=== PATIENT | female | born 1965 | race Caucasian/White ===

== ENCOUNTER → 2023-07-10 12:21 | Outpatient (REF) | payer OTHER, SELFPAY ==
[2023-07-10 13:27] LABS: % Basophils 0.4 % (0-2); % Eosinophils 1.1 % (0-6); % Immature Granulocytes 0.2 % (0-0.5); % Lymphocytes 18.2 % (20.5-51.1); % Monocytes 6.2 % (1.7-9.3); % Neutrophils 73.9 % (42.2-75.2); Absolute Eosinophils 0.1 10^3/uL (0-0.7); Absolute Lymphocytes 1.7 10^3/uL (1.2-3.4); Absolute Monocytes 0.6 10^3/uL (0.1-0.6); Hematocrit 42.3 % (37.0-47.0); Hemoglobin 13.7 g/dL (12.0-16.0); Mean Corp Hgb Conc. 32.4 g/dL (33.0-37.0); Mean Corpuscular Hgb 27.5 pg (27.0-31.0); Mean Corpuscular Volume 84.9 fL (81.0-99.0); Mean Platelet Volume 9.1 fL (7.4-10.4); Nucleated Red Blood Cells % 0 %; Platelet Count 268 10^3/uL (130-400); Red Blood Cell Count 4.98 10^6/uL (4.20-5.40); Red Cell Dist. Width 13.6 % (11.5-14.5); White Blood Cell Count 9.5 10^3/uL (4.8-10.8)
[2023-07-10 13:35] LABS: ALT (SGPT) 22 U/L (0-35); AST (SGOT) 24 U/L (14-36); Albumin 4.2 g/dl (3.5-5.0); Alkaline Phosphatase 75 U/L (38-126); Amylase 75 U/L (30-110); Blood Urea Nitrogen 15 mg/dl (7-17); Calcium 9.6 mg/dl (8.4-10.2); Carbon Dioxide 27 mmol/L (22-30); Chloride 103 mmol/L (98-107); Glucose 98 mg/dl (70-99); Lipase 86 U/L (23-300); Potassium 4.4 mmol/L (3.5-5.1); Sodium 138 mmol/L (135-145); Total Bilirubin 1.2 mg/dl (0.2-1.3); eGFR > 60.00
== END ==
LOC: HWRAD 12:21
PROVIDERS: ATTENDING PHYSICIAN Family Medicine
DX: R10.32 Left lower quadrant pain (principal)
CPT/HCPCS: 36415; 74177; 80053; 82150; 83690; 85025; Q9967

== ENCOUNTER 2023-07-10 20:04 | Day surgery (SDC) | payer OTHER, SELFPAY ==
[2023-07-10 16:12] VITALS: BP 134/89
--- NOTE | 2023-07-10 17:12 | ED.GENMED ---
History of Present Illness
General
Chief Complaint: Abdominal Pain
Source: patient and spouse
Time Seen by Provider: 07/10/23 16:49
Travel History
Have you had any contact with someone who has COVID-19?: No
Do you have any symptoms of coronavirus? Fever > 100 degrees, chills, cough, shortness of breath, sore throat, loss of taste or smell, muscle aches, or headache?: No
History of Present Illness
History of Present Illness:
This patient is a 58-year-old female has been complaining of 'heartburn' for at least the past week or so, who noted last night that she had generalized abdominal discomfort described as feeling gassy and bloated. This continued throughout the
night, without focality, and she had difficulty sleeping as result. She saw her doctor today and was referred for an outpatient CAT scan and labs, result consistent with acute appendicitis without peripheral abscess. Patient states pain continues,
is mostly across her lower abdomen including left lower quadrant. She had chills last night but denies fever sweats. She denies vomiting but does note waves of nausea. She is hungry but states that when she eats she thinks the pain might get
worse. She denies back pain, chest pain, shortness of breath, constipation, or other complaints.
Past History
Past History
ED Past Medical History: Psychiatric
ED Past Surgical History: and Tonsilectomy
Social History
Tobacco: Non-smoker
Alcohol: Occasional
Drug: None
Personal:
Living: with family
Phy Exam
Physical Exam
Physical Exam:
GENERAL: Alert , in no apparent distress
EYE: pupils equal and reactive
NECK: Supple, no significant adenopathy.
ENT: o/p clr, mm sl dry
CARDIAC: Regular rate and rhythm .
LUNGS: Clear breath sounds bilaterally, no acute respiratory distress, no wheezes/rales/rhonchi
ABDOMEN: Soft, diffuse lower tenderness greatest at RLW, no r/g, no cvat
NEUROLOGICAL: Alert and oriented, no focal neuro deficits
SKIN: Warm and dry, skin intact.
MUSCULOSKELETAL: No edema, well perfused.
PSYCH: Normal and appropriate interaction.
Course
Orders/Labs/Results
Orders:
Orders
07/10/23 16:49
IV Insert/Care/Rem.- Treatment NOW
07/10/23 17:01
0.9% Sodium Chloride 500 ml [Nss] 500 ml IV BOLUS
07/10/23 17:16
Ampicillin/Sulbactam 3 G [Unasyn] 3 gm 0.9% Sodium Chloride 100 ml [Nss] 100 ml IV NOW
07/10/23 16:49
07/10/23 16:49
Vital Signs
Initial and Last Documented VS:
Initial Vital Signs
Temp Pulse Resp BP Pulse Ox
98.4 F 77 16 134/89 98
07/10/23 16:12 07/10/23 16:12 07/10/23 16:12 07/10/23 16:12 07/10/23 16:12
Last Documented Vital Signs
Temp Pulse Resp BP Pulse Ox
98.4 F 77 16 134/89 98
07/10/23 16:12 07/10/23 16:12 07/10/23 16:12 07/10/23 16:12 07/10/23 16:12
*Critical Care Note
Total Time (30-74mins, 75-104mins- exclusive of procedures): Not Applicable
Update Note
Update Note:
Patient presents to the Emergency Department with __abdominal pain
Number and Complexity of Problems Addressed at the Encounter
� Chronic conditions affecting care:
� Acute Exacerbation and/or Progression of Chronic Illness:
� Differential Diagnosis includes: But not limited to appendicitis, mesenteric adenitis, perforation, etc.
Amount and/or Complexity of Data to be Reviewed and Analyzed
� I performed an independent evaluation of and my interpretation is:
EKG:
CT: Report read from outpatient studyAcute appendicitis. Very small volume of associated free fluid in the pelvis. No signs of rupture or abscess formation.
Xrays:
Laboratory Studies: Outpatient labs reviewed generally unremarkable
Other:
� Review of other/old records reveals:
� Clinical information was obtained by an independent historian: who is at bedside
� Prescriptions/Medications Considered but not given:
� Further testing considered but not performed:
Risk of Complications and/or Morbidity or Mortality of Patient Management
� Social determinants of health affecting care:
� Discussion with other providers (PCP, Hospitalists, Consultants, etc): Case discussed with surgery Dr. Jose Nguyen via [place] text, aware of diagnosis, PMH, allergies, etc. I informed him I will hang IV fluids and start
antibiotics in anticipation of his admission of patient and likely surgery. Patient remained stable and overall well-appearing
� Escalation of care including admission/observation vs risk of discharge considered:
ED Attending Note
-
Portions of this chart may have been created with voice recognition software.� Occasional wrong word or��sound alike� substitutions may have occurred due to the inherent limitations of voice recognition software.
Discharge Plan
Departure
Patient Disposition: Admit
Date of Disposition: 07/10/23
Time of Disposition: 17:15
Admit to: Med/Surg
Admit to doctor: delon
Presentation/result/management discussed w/ accepting /: delon
Condition: Good
Discharge Problem:
Acute appendicitis
Prescriptions:
No Action
vit-iron fum-folic ac [ Tablet] 1 TAB tablet
Referrals:
Scottie Kraus MD [Family Provider] -
Interventions
Interventions:
*ED COVID-19 Vaccine History Last Done: 07/10/23 16:12
Discharge Date and Time
Print Language: BELARUSIAN
[2023-07-10 17:23] VITALS: BMI 25.1
[2023-07-10] MEDS: NSS 500 IV (17:25)
[2023-07-10] MEDS: UNASYN IV ×2 (17:53→23:21)
[2023-07-10 18:54] VITALS: BP 115/69
--- NOTE | 2023-07-10 19:55 | HPS.HSE ---
Family Physician
-
Family Physician: Scottie Kraus
Chief Complaint
-
'Abdomen pain'
History of Present Illness
58 y/o patient presents to ER with the c/o Abdomen pain. States last night she felt gassy and bloated, noted 'crampy' pain spread through out the abdomen. She felt chills and shaky but did not check her temperature. Reports some nausea, Denies any
vomiting, took Tums without relief, states food aggravated symptoms. LBM at noon which was normal and not diarrhea or constipation. voiding without difficulty, Denies chest pain, SOB, Afebrile.
Medical History
Past Medical History
Past Medical History: Reports Psychiatric
Past Surgical History: Reports Orthopedic, Tonsilectomy and Other (C sec x 2 )
Social History
Tobacco: Non-smoker
Alcohol: None
Drug: None
Living: With Family
Family History
Family History: Not pertinent
Allergies / Home Medications
Allergies reflects when Allergies were last updated in [employer].
Home Medications with original date entered in [employer]
Allergy/Medication List:
Allergies
Allergy/AdvReac Type Severity Reaction Status Date / Time
codeine Allergy Anaphylaxis Verified 07/10/23 20:42
Sutures Allergy Hives Verified 07/10/23 20:42
Home Medications
fluoxetine 20 mg capsule 20 mg PO HS 07/10/23
omeprazole 20 mg capsule,delayed release 20 mg PO DAILY PRN gi issues 07/10/23
Review of Systems
-
History Source: Patient
A 12 point ROS was completed and negative except as noted: Yes
Constitutional: Reports No Symptoms
EENT: Reports No Symptoms
Respiratory: Reports No Symptoms
Cardiac: Reports No Symptoms
Abdomen/GI: Reports Abdominal Pain ('crampy' )
: Reports No Symptoms
Musculoskeletal: Reports No Symptoms
Skin: Reports No Symptoms
Neurological: Reports No Symptoms
Endocrine: Reports No Symptoms
Hematologic/Lymphatic: Reports No Symptoms
Psych: Reports No Symptoms
Physical Exam
Vital Signs
Vital Signs
Temp Pulse Resp BP Pulse Ox
98.4 F 58 16 115/69 98
07/10/23 16:12 07/10/23 18:54 07/10/23 18:54 07/10/23 18:54 07/10/23 18:54
Physical Exam
General: Well Developed, Well Nourished and No Apparent Distress
HEENT: NormoCephalic, Moist mucous membranes and Atraumatic
Respiratory: Clear and Non Labored Respirations
Cardiac: S1/S2 and Regular Rhythm
Breast: Deferred by me
GI: Soft, Non Distended, Normal Bowel Sounds and Tender
Rectal: Deferred by Provider
Genito-urinary: Deferred by me
Musculoskeletal: No Clubbing, No Cyanosis and No Edema
Skin: Warm and Dry
Neuro: Awake and AO x 3
Hematologic/Lymphatic: No Lymphadenopathy
Psych: Calm and Intact Judgment/Insight
Laboratory Results
-
07/10/23 16:49
07/10/23 16:49
Data Reviewed
-
CT Scan: Report Reviewed by me
Lab Data: Labs Reviewed by me
Impression/Plan
-
58 y/o patient with the c/o abdomen pain
# Abdomen pain likely due to Acute Appendicitis
-# CT Abd/pelvis: Acute appendicitis. Very small volume of associated free fluid in the pelvis. No signs of rupture or abscess formation.
-Admit under Dr. Nguyen
-Continue IV Unasyn
-refuses pain meds now, call if asks.
-continue IV Zofran
-NPO
-labs in AM
# Anxiety/Depression
-continue Fluoxetine
DVT Prophylaxis: SCD's
Full code
[2023-07-10 20:46] VITALS: BP 136/79; BMI 25.5
--- NOTE | 2023-07-10 21:15 | PTCARENOTE ---
Received patient from ED via stretcher. Patient ambulated from stretcher to bed. AAOx3, VSS. Patient offers no complaints. Oriented patient to room and placed call alexandre within reach.
[2023-07-10] MEDS: NSS 1000 IV (21:20)
[2023-07-10] MEDS: PROZAC 20 MG PO (21:21)
--- NOTE | 2023-07-10 23:21 | HPS.HSE ---
Family Physician
-
Family Physician: Scottie Kraus
Chief Complaint
-
Right lower quadrant abdominal pain
History of Present Illness
This is a 58-year-old female who presents with a 1 day history of periumbilical/right lower quadrant abdominal pain in the setting of a 1 week history of abdominal discomfort. She saw her PCP earlier today who arranged for an outpatient CT scan
which demonstrated acute appendicitis and so she was referred to our ED for further evaluation and management. She does report some chills as well as pain however currently it is tolerable. The patient denies Fever, Chest Pain, Shortness Of
Breath, Nausea, Vomiting, changes in urinary and bowel habits, unintentional weight loss, jaundice, icterus, acolic stools.
Medical History
Past Medical History
Past Medical History: Reports None
Past Surgical History: Reports Other ( x 2)
Social History
Tobacco: Non-smoker
Alcohol: Occasional
Drug: None
Family History
Family History: Not pertinent
Allergies / Home Medications
Allergies reflects when Allergies were last updated in [employer].
Home Medications with original date entered in [employer]
Allergy/Medication List:
Codeine
Review of Systems
-
A 12 point ROS was completed and negative except as noted: Yes
Physical Exam
Vital Signs
Vital Signs
Temp Pulse Resp BP Pulse Ox
99.1 F 65 17 136/79 98
07/10/23 20:46 07/10/23 20:46 07/10/23 20:46 07/10/23 20:46 07/10/23 20:46
Physical Exam
General: Well Developed
HEENT: NormoCephalic
Respiratory: Non Labored Respirations
GI: Soft, Non Distended and Tender (Mildly tender to palpation in the right lower quadrant.)
Laboratory Results
-
07/10/23 16:49
07/10/23 16:49
Data Reviewed
-
CT Scan: Image Personally Visualized and interpreted, Report Reviewed by me and Discussed with Patient
Lab Data: Labs Reviewed by me, Discussed with Physician and Discussed with Patient
Impression/Plan
-
IMPRESSION:
This is a 58-year-old female who presents with a 1 day history of worsening right lower quadrant pain with associated chills. Tender to palpation in the right lower quadrant, but otherwise clinically stable and no leukocytosis on blood work. CT
scan concerning for acute appendicitis without any appendicolith or concern for perforation.
PLAN:
Discussed both operative and nonoperative management of acute appendicitis. Will trial antibiotics for now and plan for OR in the morning.
N.p.o., IV fluids, IV antibiotics.
Risks/Benefits/Alternatives, expected postoperative course and possible complications (bleeding, infection, injury to surrounding structures, acute/chronic pain) discussed at length. Patient wishes to proceed with surgery. All questions answered.
Consent obtained.
I spent roughly 60 minutes in total for the care of this patient today including direct patient care and counseling, reviewing labs, imaging, coordination of care, as well as documentation.
[2023-07-10 23:55] VITALS: BP 106/63
[2023-07-11] VITALS (7 sets, daily range): BP systolic 103–127; BP diastolic 66–76
[2023-07-11] MEDS: UNASYN IV ×2 (05:32→11:26)
[2023-07-11 07:24] LABS: Hematocrit 39.3 % (37.0-47.0); Hemoglobin 12.6 g/dL (12.0-16.0); Mean Corp Hgb Conc. 32.1 g/dL (33.0-37.0); Mean Corpuscular Hgb 27.5 pg (27.0-31.0); Mean Corpuscular Volume 85.8 fL (81.0-99.0); Mean Platelet Volume 8.9 fL (7.4-10.4); Platelet Count 221 10^3/uL (130-400); Red Blood Cell Count 4.58 10^6/uL (4.20-5.40); Red Cell Dist. Width 13.7 % (11.5-14.5); White Blood Cell Count 5.4 10^3/uL (4.8-10.8)
[2023-07-11 07:57] LABS: ALT (SGPT) 17 U/L (0-35); AST (SGOT) 21 U/L (14-36); Albumin 3.5 g/dl (3.5-5.0); Alkaline Phosphatase 70 U/L (38-126); Blood Urea Nitrogen 11 mg/dl (7-17); Carbon Dioxide 26 mmol/L (22-30); Chloride 106 mmol/L (98-107); Estimated Creatinine Clearance 75 ml/min; Glucose 85 mg/dl (70-99); Potassium 4.4 mmol/L (3.5-5.1); Sodium 140 mmol/L (135-145); Total Bilirubin 1.7 mg/dl (0.2-1.3); Total Protein 6.1 g/dl (6.3-8.2); eGFR > 60.00
--- NOTE | 2023-07-11 11:48 | OR.RPT ---
Operative Report
Operative Report
Primary Surgeon: Apollo
Assisting: Artur RENTERIA
Pre-op Diagnosis: Acute appendicitis
Post-op Diagnosis: Same
Procedure Performed: Laparoscopic appendectomy
Anesthesia Type: GETA
Specimen / Cultures: Appendix
Estimated Blood Loss: 2cc
Complications: None immediate
Operative Findings: Mildly inflamed hyperemic appendix without evidence of perforation, turbid fluid in pelvis suctioned.
Date of Surgery: 07/11/23
Indications: This 58F developed right lower quadrant abdominal pain and on workup was found to have acute appendicitis. Laparoscopic appendectomy was elected.
Description of procedure: The patient was placed on the operating table in the supine position. General anesthesia was induced. A time-out was completed verifying correct patient, procedure, site, positioning, and special equipment prior to
beginning this procedure. An orogastric tube was placed. The abdomen was prepped and draped in the usual sterile fashion. A stab incision was made in left upper quadrant and the Veress needle was inserted. Proper position was confirmed by aspiration
and saline meniscus test. The abdomen was insufflated with carbon dioxide to a pressure of 12 mmHg. The patient tolerated insufflation well.
A 5mm optical trocar was then inserted at the left lower quadrant. The laparoscope was inserted and the abdomen inspected. No injuries from initial trocar placement or Veress needle insertion were noted. Additional trocars were then inserted in the
following locations: a 12-mm trocar at the umbilicus and a 5-mm trocar midline in the suprapubic space. The abdomen was inspected and no abnormalities were found. The table was placed in the Trendelenburg position with the right side up. The
appendix was mildly inflamed. The tip of the appendix was gently grasped with an atraumatic grasper and retracted toward the patient�s feet and abdominal wall. This maneuver exposed the appendiceal blood supply which was controlled with the Ligasure
device. Following this, a laparoscopic linear cutting stapler with a 45mm morejon load was deployed and used to transect the appendix at its base. The appendix was placed in an endoscopic retrieval bag, removed through the umbilical port, and passed off
the table as a specimen.
We then turned our attention to the staple line, which was noted to be hemostatic. Scant turbid fluid was suctioned from the pelvis. The umbilical trocar site was closed at the fascial level laparoscopically with 2-0 PDS under direct vision.
Secondary trocars were removed under direct vision and noted to be hemostatic. The laparoscope was withdrawn and the abdomen was allowed to collapse. The skin was closed with subcuticular sutures of 4-0 monocryl and topical skin adhesive. The
orogastric tube was removed.
The patient tolerated the procedure well and was taken to the postanesthesia care unit in stable condition.
The assistance of Artur RENTERIA was required due to the complexity of the procedure. During the procedure he assisted with retraction, resection, and closure of the wound.
--- NOTE | 2023-07-11 11:50 | W.DS.TRANS ---
DC Summary - Level Vial Setter
-
Discharge Instructions:
Discharge Diagnosis/Procedures Acute appendicitis
Diet No restrictions
Activity No strenuous activity
Driving Restrictions No driving for 24 hours
Bathing Restrictions OK to Shower
Wound Care Allow skin glue to flake off on its own
Instructions: Appendectomy, Laparoscopic Surgery (DC)
Stand-Alone Forms:
Changes to Home Medications: No
Discharge Medications:
DC Medications w/original date entered in [employer]
fluoxetine 20 mg capsule 20 mg PO HS Mental Health/Anxiety 07/10/23
omeprazole 20 mg capsule,delayed release 20 mg PO DAILY PRN gi issues 07/10/23
oxycodone 5 mg tablet 5 - 10 mg (1 - 2 x 5 mg) PO Q4HPRN PRN moderate to severe pain #10 tabs 07/11/23
Home Medication Changes
Pending Results: No
--- NOTE | 2023-07-11 13:54 | CM ---
Addendum entered by Sonia Johnson 07/11/23 17:13:
No discharge needs identified.
Original Note:
Vikki was admitted via ED for lap appendectomy. She arrived to the floor this afternoon and may be discharged to home today with her . There is a dog and cat at home; I advised Vikki to be mindful of where the animals are when she is
walking.
PCP: Scottie Rucker
Pharmacy: [facility]
--- NOTE | 2023-07-11 14:49 | PTCARENOTE ---
Arrived from OR, No complaints of pain. Call alexandre within reach.
== END 2023-07-11 17:37 | disposition home or self-care (01) ==
LOC: SDS 20:04
PROVIDERS: Nurse Practitioner Gerontology; ATTENDING PHYSICIAN Surgery; EMERGENCY PHYSICIAN Emergency Medicine; FAMILY PHYSICIAN Family Medicine
DX: K35.80 Unspecified acute appendicitis (principal)
CPT/HCPCS: 44970; 88304; 80053; 85027; 96365; 99285

== ENCOUNTER → 2023-12-07 06:26 | Day surgery (SDC) | payer OTHER, SELFPAY | LOC: GI 06:26 | PROVIDERS: ATTENDING PHYSICIAN Internal Medicine Gastroenterology | DX: Z12.11 Encounter for screening for malignant neoplasm of colon (principal); K63.5 Polyp of colon; K62.1 Rectal polyp; D12.4 Benign neoplasm of descending colon; K64.8 Other hemorrhoids; Q43.8 Other specified congenital malformations of intestine; Z86.0101 Personal history of adenomatous and serrated colon polyps | CPT/HCPCS: 45385; 45380; 88305 ==

== ENCOUNTER → 2024-10-21 11:05 | Outpatient (REF) | payer BC, SELFPAY | LOC: WDC 11:05 | PROVIDERS: ATTENDING PHYSICIAN Nurse Practitioner Family | DX: Z12.31 Encounter for screening mammogram for malignant neoplasm of breast (principal); Z13.820 Encounter for screening for osteoporosis | CPT/HCPCS: 77063; 77067; 77080 ==